=== PATIENT | male | born 1965 | race African-American/Black ===

== ENCOUNTER 2024-01-17 06:56 | Emergency (ER) | payer SELFPAY ==
[~2024-01-17] VITALS: Ht 165.1 cm; Wt 73.7 kg
[2024-01-17 07:01] VITALS: O2SAT 99
[2024-01-17] MEDS: TRANEXAMIC ACID 1,000MG/10ML TP ONE (09:00)
[2024-01-17] MEDS: OXYMETAZOLINE HCL NASAL SPRAY 15ML BOTHNSTRLS NR (09:00)
[2024-01-17] MEDS: PHENYLEPHRINE HCL 1% 30ML NASAL SPRAY BOTHNSTRLS ONE (09:00)
[2024-01-17 10:38] VITALS: BP 155/84; PULSE 68; RESP 18; TEMP 98.1
== END 2024-01-17 12:04 | disposition home or self-care (01) ==
LOC: ER 10:31
DX: R04.0 Epistaxis (principal)
CPT/HCPCS: 99282